=== PATIENT | male | born 1960 | race Caucasian/White ===

== ENCOUNTER → 2019-08-24 | Outpatient (CLI) | payer OTHER ==
--- NOTE | 2019-08-24 14:15 | RAD ---
Single frontal view pelvis Indication: PAIN IN LEFT HIP Comparison: None. Impression: No acute fracture or malalignment. Mild bilateral hip osteoarthritis. Mild pubic symphysis osteoarthritis. Lower lumbar disc disease. A hemivertebral body suspected at L4. Electronically signed by: Wilber Rod MD 08/24/2019 2:14 PM [facility]
--- NOTE | 2019-08-24 14:16 | RAD ---
EXAM DESCRIPTION: Shoulder,Right 2 or More Views CLINICAL HISTORY: 58 years Male, PAIN IN RIGHT SHOULDER COMPARISON: None. Findings: Four views/radiographs Location: Right shoulder No acute fracture or dislocation. Moderate acromioclavicular osteoarthritis. Soft tissues are unremarkable. Subacromial space is maintained. Visualized chest is clear. Mild glenohumeral osteoarthritis. Remote multiple right rib deformities. IMPRESSION: No evidence of acute process in the right shoulder. Electronically signed by: Scotty Cheung MD 08/24/2019 2:14 PM [facility]
--- NOTE | 2019-08-24 14:17 | RAD ---
EXAM DESCRIPTION: Knee,Left Complete CLINICAL HISTORY: 58 years Male, PAIN IN LEFT KNEE COMPARISON: None. Findings: Four views/radiographs Location: Left knee No acute fracture or dislocation. Severe medial compartment narrowing with lateral tibial translation. Tricompartmental osteophytes. Lateral patellar subluxation and tilt. No significant joint effusion. IMPRESSION: Chronic degenerative changes in the left knee. Electronically signed by: Scotty Cheung MD 08/24/2019 2:16 PM [facility]
== END ==
LOC: RAD 08:08
PROVIDERS: ATTEND Orthopaedic Surgery
DX: M17.12 Unilateral primary osteoarthritis, left knee (principal); M51.36 Other intervertebral disc degeneration, lumbar region; M16.0 Bilateral primary osteoarthritis of hip